=== PATIENT | female | born 1970 | race Caucasian/White ===

== ENCOUNTER 2022-12-09 09:06 | Emergency (ER) | payer OTHER ==
[2022-12-09 09:12] VITALS: RESP 18
[2022-12-09] MEDS ORDERED: KETOROLAC 15 MG/ML 1 ML VIAL IVP STA (09:39)
[2022-12-09] MEDS ORDERED: ACETAMINOPHEN TAB 325 MG TAB PO STA (09:39)
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
[2022-12-09 12:06] VITALS: BP 145/78; PULSE 85; TEMP 98
== END 2022-12-09 12:08 | disposition home or self-care (01) ==
LOC: EC 09:06
DX: Z04.1 Encounter for examination and observation following transport accident (principal); F17.200 Nicotine dependence, unspecified, uncomplicated; Z88.0 Allergy status to penicillin; V49.40XA Driver injured in collision with unspecified motor vehicles in traffic accident, initial encounter
CPT/HCPCS: 73130; 73590; 71046; 72125; 70450; 99285; 96374; J1885